=== PATIENT | male | born 1975 | race Caucasian/White ===

== ENCOUNTER 2022-11-20 11:10 | Day surgery (SDC) | payer OTHER ==
[~2022-11-20 11:10] MED LIST: Lactated Ringers 1,000 ML IV SCH
[2022-11-20] MEDS ORDERED: propofoL 50 ML ONE (11:55)
[2022-11-20] MEDS ORDERED: Lactated Ringers 1,000 ML IV SCH (12:45)
== END 2022-11-20 13:20 | disposition home or self-care (01) ==
LOC: MW.SDS 11:10
PROVIDERS: ATTEND Surgery
DX: Z12.11 Encounter for screening for malignant neoplasm of colon (principal); K43.9 Ventral hernia without obstruction or gangrene; K44.9 Diaphragmatic hernia without obstruction or gangrene; G47.00 Insomnia, unspecified; F43.10 Post-traumatic stress disorder, unspecified; Z86.010 Personal history of colon polyps; Z88.8 Allergy status to other drugs, medicaments and biological substances; Z91.048 Other nonmedicinal substance allergy status; Z83.3 Family history of diabetes mellitus; Z83.438 Family history of other disorder of lipoprotein metabolism and other lipidemia; Z82.49 Family history of ischemic heart disease and other diseases of the circulatory system; Z81.8 Family history of other mental and behavioral disorders; Z87.891 Personal history of nicotine dependence
CPT/HCPCS: 45378; J2704; J7120; 00812

== ENCOUNTER 2024-05-10 13:35 | Emergency (ER) | payer BC ==
[2024-05-10] MEDS: Sodium Chloride 0.9% 1,000 ML IV STA ×2 (14:23→15:10)
[2024-05-10] MEDS: Sodium Chloride 0.9% 2.5 ML Syringe FLUSH PRN (14:23)
[2024-05-10] MEDS: Sodium Chloride 0.9% 10 ML Syringe FLUSH PRN (14:23)
[2024-05-10 14:30] LABS: BASOPHILS ABSOLUTE AUTO 0.01 K/uL (0.00-0.20); BASOPHILS PERCENT AUTO 0.1 % (0.0-1.0); EOSINOPHILS ABSOLUTE AUTO 0.01 K/uL (0.00-0.45); EOSINOPHILS PERCENT AUTO 0.1 % (0.0-6.0); HEMATOCRIT 42.8 % (42.0-52.0); HEMOGLOBIN 15.4 g/dL (14.0-18.0); IMMATURE GRAN ABSOLUTE AUTO 0.09 K/uL (0.00-0.05); IMMATURE GRAN PERCENT AUTO 1.1 % (0.0-0.4); LYMPHOCYTES ABSOLUTE AUTO 0.99 K/uL (1.00-4.80); MEAN CORPUSCULAR HEMOGLOBIN 29.2 pg (28.0-32.0); MEAN CORPUSCULAR VOLUME 81.2 fL (83.0-99.0); MEAN PLATELET VOLUME 9.6 fL (9.4-12.4); MONOCYTES ABSOLUTE AUTO 0.35 K/uL (0.00-0.80); MONOCYTES PERCENT AUTO 4.3 % (0.0-8.0); NEUTROPHILS ABSOLUTE AUTO 6.78 K/uL (1.80-7.70); NEUTROPHILS PERCENT AUTO 82.4 % (41.0-71.0); PLATELET COUNT,PLT 220 K/uL (150-400); RED BLOOD CELL COUNT 5.27 M/uL (4.52-5.90); WHITE BLOOD CELL COUNT,WBC 8.23 K/uL (3.9-11.3)
[2024-05-10 15:17] LABS: APPEARANCE,URINE CLEAR; BILIRUBIN,URINE NEGATIVE (NEGATIVE); COLOR,URINE YELLOW; GLUCOSE,URINE NEGATIVE (NEGATIVE); KETONES,URINE NEGATIVE (NEGATIVE); LEUKOCYTE ESTERASE,URINE NEGATIVE (NEGATIVE); NITRITE,URINE NEGATIVE (NEGATIVE); OCCULT BLOOD,URINE NEGATIVE (NEGATIVE); PROTEIN,URINE NEGATIVE (NEGATIVE); UROBILINOGEN,URINE 0.2 EU/dL (<2.0)
[2024-05-10 16:18] LABS: A/G RATIO 1.2 (0.9-1.6); ALBUMIN 3.8 g/dL (3.4-5.0); BILIRUBIN TOTAL 0.7 mg/dL (0.2-1.0); CALCIUM 9.1 mg/dL (8.5-10.1); CARBON DIOXIDE,CO2 22.3 mmol/L (21.0-32.0); CREATININE 0.7 mg/dL (0.8-1.3); EST CRCL DRUG DOSING (CG) 129.06 mL/min; MAGNESIUM 2.1 mg/dL (1.8-2.4); POTASSIUM,K 4.5 mmol/L (3.5-5.1); PROTEIN TOTAL,TP 6.9 g/dL (6.4-8.2)
== END 2024-05-10 16:41 | disposition home or self-care (01) ==
LOC: MW.ED 13:35
DX: K22.2 Esophageal obstruction (principal); R05.9 Cough, unspecified; R09.89 Other specified symptoms and signs involving the circulatory and respiratory systems; Z88.0 Allergy status to penicillin; Z91.048 Other nonmedicinal substance allergy status; Z79.899 Other long term (current) drug therapy; Z75.8 Other problems related to medical facilities and other health care
CPT/HCPCS: 36415; 71046; 80053; 81003; 83690; 83735; 85025; 86308; 87428; 96360; 96361; 99284; J7030

== ENCOUNTER 2024-07-09 07:20 | Day surgery (SDC) | payer BC, OTHER ==
[2024-07-09] MEDS ORDERED: ceFAZolin 2 GM in Sodium Chloride 0.9% 50 ML IV ONE (08:00)
[2024-07-09] MEDS: Lactated Ringers 1,000 ML IV SCH (08:03)
[2024-07-09] MEDS ORDERED: Bupivacaine 0.5%/EPINEPHrine 1:200,000 30 ML SDV ONE (08:10)
[2024-07-09] MEDS ORDERED: fentaNYL 50 MCG/ML SDV IVPUSH PRN (08:13)
[2024-07-09] MEDS ORDERED: Ondansetron 4 MG/2 ML SDV IVPUSH PRN (08:13)
[2024-07-09] MEDS ORDERED: Albuterol 0.083% 2.5 MG/3 ML Neb Soln NEB PRN (08:13)
[2024-07-09] MEDS ORDERED: Metoclopramide 10 MG/2 ML SDV IVPUSH PRN (08:13)
[2024-07-09] MEDS ORDERED: Phenylephrine HCl In 0.9% NaCl 1 MG/10 ML Syringe IVPUSH PRN (08:13)
[2024-07-09] MEDS ORDERED: HYDROmorphone 1 MG/ML Syringe IVPUSH PRN (08:13)
[2024-07-09] MEDS ORDERED: Naloxone 0.4 MG/ML SDV IVPUSH PRN (08:13)
[2024-07-09] MEDS ORDERED: Morphine 2 MG/ML SYRINGE IVPUSH PRN (08:13)
[2024-07-09] MEDS ORDERED: Propofol 200 MG/20 ML SDV ONE (08:41)
[2024-07-09] MEDS ORDERED: Midazolam 1 MG/ML 2 ML SDV ONE (08:41)
[2024-07-09] MEDS ORDERED: fentaNYL 100 MCG/2 ML SDV ONE (08:41)
[2024-07-09] MEDS ORDERED: Lidocaine 2% 5 ML SDV ONE (08:41)
[2024-07-09] MEDS ORDERED: ceFAZolin 1 GM Vial ONE (08:58)
[2024-07-09] MEDS ORDERED: Ondansetron 4 MG/2 ML SDV ONE (09:11)
[2024-07-09] MEDS ORDERED: Dexamethasone 4 MG/ML 5 ML MDV ONE (09:11)
== END 2024-07-09 11:20 | disposition home or self-care (01) ==
LOC: MW.SDS 07:20
PROVIDERS: ATTEND Orthopaedic Surgery
DX: S83.242A Other tear of medial meniscus, current injury, left knee, initial encounter (principal); M22.8X2 Other disorders of patella, left knee; Z91.09 Other allergy status, other than to drugs and biological substances; Z79.899 Other long term (current) drug therapy
CPT/HCPCS: 29881; J0690; J1100; J2003; J2250; J2405; J2704; J3010; J7120; 01400; J3490

== ENCOUNTER 2024-12-19 09:08 | Day surgery (SDC) | payer BC ==
[2024-12-19] MEDS: Lactated Ringers 1,000 ML IV SCH (09:47)
[2024-12-19] MEDS ORDERED: propofoL 500 MG/50 ML 50 ML ONE (09:51)
[2024-12-19] MEDS ORDERED: Ketamine HCL/NACL, ISO-OSM 50 MG/5 ML Syringe ONE (10:28)
[2024-12-19] MEDS ORDERED: Dexamethasone 4 MG/ML 5 ML MDV ONE (10:29)
[2024-12-19] MEDS ORDERED: Ondansetron 4 MG/2 ML SDV ONE (10:29)
[2024-12-19] MEDS ORDERED: Lactated Ringers 1,000 ML IV SCH (11:00)
== END 2024-12-19 11:30 | disposition home or self-care (01) ==
LOC: MW.SDS 09:08
PROVIDERS: ATTEND Surgery
DX: D12.3 Benign neoplasm of transverse colon (principal); K57.31 Diverticulosis of large intestine without perforation or abscess with bleeding; K64.0 First degree hemorrhoids; E66.9 Obesity, unspecified; Z88.5 Allergy status to narcotic agent; Z91.09 Other allergy status, other than to drugs and biological substances; Z68.29 Body mass index [BMI] 29.0-29.9, adult; Z79.899 Other long term (current) drug therapy; Z86.0100 Personal history of colon polyps, unspecified
CPT/HCPCS: 45380; J1100; J2405; J2704; J7120; 00811; J3490